=== PATIENT | male | born 2000 | race Caucasian/White ===

== ENCOUNTER 2022-05-29 23:12 | Emergency (ER) | payer BC ==
[2022-05-30 02:52] LABS: C. TRACHOMATIS BY PCR NOT DETECTED; N. GONORRHOEAE BY PCR NOT DETECTED
== END 2022-05-30 03:29 | disposition home or self-care (01) ==
LOC: MW.ED 23:12
DX: A64 Unspecified sexually transmitted disease (principal)
CPT/HCPCS: 36415; 87389; 87491; 87591; 99283